=== PATIENT | female | born 1995 | race Caucasian/White ===

== ENCOUNTER 2018-11-20 10:06 | Emergency (ER) | payer MEDICAID, OTHER ==
[~2018-11-20] VITALS: Ht 149.9 cm; Wt 72.6 kg
[~2018-11-20 10:06] MED LIST: GUAI118L94 PO; IBUP-1542 PO; IPRA14.76; LORA-186 PO
[2018-11-20 10:13] VITALS: Ht 149.9 cm; Wt 72.6 kg
[2018-11-20] MEDS ORDERED: ONDANSETRON 4 MG INJ IV STA (10:48)
[2018-11-20] MEDS ORDERED: SOD CHLORIDE 0.9% 500 ML IV STA (10:48)
[2018-11-20] MEDS ORDERED: FAMOTIDINE 20 MG INJ IV STA (10:48)
[2018-11-20] MEDS ORDERED: LIDOCAINE/MYLANTA 40 ML BTL PO STA (10:48)
--- NOTE | 2018-11-20 11:23 | ERD ---
ER Documentation Chief Complaint Chief Complaint ABDOMINAL PAIN TODAY HPI This is a 23-year-old female with a nonsignificant past medical history presents ED with complaints of epigastric abdominal pain that started after lifting a h eavy patient earlier today. Patient states the pain comes and goes and describes it as sharp. Patient states she does not have the pain currently. Patient states that this pain is similar to when she had gallstones but she has had her gallbladder removed. Admits to nausea and mild headache. Patient states that after lifting a heavy patient she started experiencing some mild bilateral shoulder discomfort and chest wall pain as well. Of utmost concern the patient is the abdominal pain. Denies fever, chills, vomiting, hemoptysis, diarrhea, constipation, melena, hematochezia, shortness of breath, trouble breathing, and all other symptoms. No recent travel or sick contact ROS All systems reviewed and are negative except as per history of present illness. Medications Home Meds Active Scripts Ondansetron (Ondansetron Odt) 4 Mg Tab.rapdis, 4 MG PO Q6H PRN for NAUSEA AND/OR VOMITING, #10 TAB Prov:TIFFANIE MCCAIN PA-C 11/20/18 Cephalexin* (Keflex*) 500 Mg Capsule, 500 MG PO BID for 7 Days, CAP Prov:TIFFANIE MCCAIN PA-C 11/20/18 Famotidine* (Pepcid*) 20 Mg Tablet, 20 MG PO BID for 4 Days, TAB Prov:TIFFANIE MCCAIN PA-C 11/20/18 Ibuprofen* (Motrin*) 600 Mg Tab, 600 MG PO Q6H PRN for PAIN AND OR ELEVATED TEMP, #30 TAB Prov:PENG CROWELL NP 11/14/15 Guaifenesin-Codeine Phosphate* (Guaifenesin* with Codeine Liq) 120 Ml Liquid, 5 ML PO Q4H for COUGH, #60 ML Prov:PENG CROWELL NP 11/14/15 Loratadine* (Claritin*) 10 Mg Tablet, 10 MG PO DAILY, #30 TAB Prov:PENG CROWELL NP 11/14/15 Reported Medications Albuterol/Ipratropium (Combivent) 14.7 Gm Inha 07/22/12 Allergies Allergies: Coded Allergies: No Known Allergy (Unverified , 1/3/19) PMhx/Soc History of Surgery: Yes (C/SECTION X1) Anesthesia Reaction: No Hx Neurological Disorder: No Hx Respiratory Disorders: Yes (ASTHMA) Hx Cardiac Disorders: Yes (HEART MURMUR ) Hx Psychiatric Problems: No Hx Miscellaneous Medical Probl: No Hx Alcohol Use: No Hx Substance Use: No Hx Tobacco Use: No Smoking Status: Never smoker FmHx Family History: No diabetes Physical Exam Vitals Vital Signs Date Temp Pulse Resp B/P (MAP) Pulse Ox O2 O2 Flow FiO2 Time Delivery Rate 11/20/18 97.4 76 18 123/76 100 10:13 (92) Physical Exam Physical Exam Vitals signs: Reviewed by me. General: Well developed, well nourished, in no acute distress. Patient is awake and alert. Head: Normocephalic, atraumatic. Eyes: Normal conjunctiva, Pupils PERRLA, EOM intact grossly ENT: Pharynx is clear, Moist mucous membranes, external ears, nose and mouth normal Neck: Supple, no masses, lymphadenopathy or JVD Respiratory: Clear to auscultation bilaterally with no wheezing, rhonchi, rales, no distress Chest: No increased AP diameter, no flail chest, nontender to palpation Cardiovascular: RRR, no murmurs, rubs, or gallops Abdominal: Soft, nondistended, no peritoneal signs, no rigidity, no surgical abdomen, bowel sounds present all 4 quadrants, nontender light deep palpation all 4 quadrants, Nolasco sign negative, McBurney's point nontender, no rebound tenderness : Deferred MSK: No edema, no unilateral swelling, 5/5 strength Back: No midline tenderness. No flank tenderness Neurologic: Alert and oriented, moving all extremities, normal speech, no focal weakness, no cerebellar signs. Normal mentation Skin: warm and dry, No rash Psych: Normal mood Result Diagram: 11/20/18 1108 11/20/18 1108 Results 24 hrs Laboratory Tests Test 11/20/18 11:08 11/20/18 11:17 White Blood Count 6.9 10^3/ul Red Blood Count 4.48 10^6/ul Hemoglobin 13.1 g/dl Hematocrit 40.3 % Mean Corpuscular Volume 90.0 fl Mean Corpuscular Hemoglobin 29.2 pg Mean Corpuscular Hemoglobin Concent 32.5 g/dl Red Cell Distribution Width 12.8 % Platelet Count 248 10^3/UL Mean Platelet Volume 11.2 fl Immature Granulocytes % 0.300 % Neutrophils % 60.9 % Lymphocytes % 32.1 % Monocytes % 5.7 % Eosinophils % 0.7 % Basophils % 0.3 % Nucleated Red Blood Cells % 0.0 /100WBC Immature Granulocytes # 0.020 10^3/ul Neutrophils # 4.2 10^3/ul Lymphocytes # 2.2 10^3/ul Monocytes # 0.4 10^3/ul Eosinophils # 0.1 10^3/ul Basophils # 0.0 10^3/ul Nucleated Red Blood Cells # 0.0 10^3/ul Urine Color YELLOW Urine Clarity SLIGHTLY CLOUDY Urine pH 5.0 Urine Specific [place] 1.019 Urine Ketones NEGATIVE mg/dL Urine Nitrite NEGATIVE mg/dL Urine Bilirubin NEGATIVE mg/dL Urine Urobilinogen NEGATIVE mg/dL Urine Leukocyte Esterase 2+ [place]/ul Urine Microscopic RBC 3 /HPF Urine Microscopic WBC 7 /HPF Urine Squamous Epithelial Cells FEW /HPF Urine Hemoglobin 3+ mg/dL Urine Glucose NEGATIVE mg/dL Urine Total Protein NEGATIVE mg/dl Sodium Level 139 mmol/L Potassium Level 4.1 mmol/L Chloride Level 103 mmol/L Carbon Dioxide Level 27 mmol/L Anion Gap 9 Blood Urea Nitrogen 15 mg/dl Creatinine 0.65 mg/dl Est Glomerular Filtrat Rate mL/min > 60 mL/min Glucose Level 97 mg/dl Calcium Level 9.5 mg/dl Total Bilirubin 0.1 mg/dl Direct Bilirubin 0.00 mg/dl Indirect Bilirubin 0.1 mg/dl Aspartate Amino Transf (AST/SGOT) 28 IU/L Alanine Aminotransferase (ALT/SGPT) 24 IU/L Alkaline Phosphatase 106 IU/L Troponin I < 0.012 ng/ml Total Protein 8.7 g/dl Albumin 4.7 g/dl Globulin 4.00 g/dl Albumin/Globulin Ratio 1.17 Lipase 35 U/L POC Beta HCG, Qualitative NEGATIVE Current Medications Medications Dose Sig/Lilo Start Time Status Last (Trade) Ordered Route PRN Stop Time Admin Dose Reason Admin Sodium 500 ml @ Q1H STAT 11/20/18 DC 11/20/18 Chloride 500 mls/hr IV 10:48 11/20/18 11:06 11:47 Ondansetron 4 mg ONCE STAT 11/20/18 DC 11/20/18 HCl (Zofran IV 10:48 11/20/18 11:06 Inj) 10:50 Famotidine 20 mg ONCE STAT 11/20/18 DC 11/20/18 (Pepcid Iv) IV 10:48 11/20/18 11:06 10:50 40 ml ONCE STAT 11/20/18 DC 11/20/18 Miscellaneous PO 10:48 11/20/18 11:05 Medication 10:50 (Gi Cocktail (2)) Procedures/MDM EKG read by AVERY: Rate/Rhythm: Regular rate and rhythm at a rate of 76 Intervals: Normal Impression: No evidence of ischemia or arrhythmia No ST elevation, no peak T waves, no flattened T waves, no widened QRS, no NC interval prolongation, no QT interval prolongation LAB INTERPRETATION: CBC shows no evidence of hemorrhage or infection Chemistry shows no evidence of significant electrolyte abnormalities or renal insufficiency Liver function test shows no evidence of acute biliary or hepatic dysfunction Lipase shows no evidence of acute pancreatitis Cardiac biomarkers show no evidence of acute myocardial injury or coronary ischemia Urinalysis is remarkable for leukocyte esterase 2+ and 7 WBCs ER COURSE: The patient was given normal saline, Zofran, Pepcid and GI cocktail The medication was well tolerated and the patient reports improvement in symptoms. The patient was stable throughout ED course. I kept the patient and/or family informed of laboratory and diagnostic imaging results throughout the emergency room course. The patient was promptly evaluated and a treatment plan was devised based on H&P and other data. This plan was discussed with the patient who agreed and had no further questions or concerns prior to discharge. MEDICAL DECISION MAKING: Non- woman presenting with abdominal pain. test is negative. Considered causes of female-specific abdominal pain including pelvic inflammatory disease, tubo-ovarian abscess, [id number], and ovarian torsion. Also considered causes of abdominal pain that are not gender-specific (e.g., appendicitis, volvulus, small bowel obstruction, mesenteric adenitis, acute cholecystitis/choledocholithiasis and other biliary pathology, etc.). Patient well-appearing with normal vital signs. No peritoneal signs and abdomen benign on multiple repeat examinations. Pt well hydrated. Laboratory testing here reviewed and normal. Patient does have 2+ leukocyte esterase in urine. Will treat patient for UTI. Unsure of source of patient's epigastric abdominal pain but likely could be due to gastritis. No evidence of gastrointestinal em ergency, cardiac emergency including but not limited to GA, STEMI, and STEMI, aortic dissection, appendicitis, cholecystitis, small bowel obstruction, perforated viscus. Patient given strict return precautions for worsening pain, inability to eat/drink, fevers (temperature over 100.4F), or other concerns. Prior to discharge all questions answered. She agrees with treatment plan and understands strict return precautions. Follow-up for repeat abdominal exam within 12 hours. DISPOSITION PLAN: We discussed follow up with the patient's primary care doctor within 24 to 48 hours. Patient counseled regarding my diagnostic impression and care plan. Prior to discharge all questions answered. Pt agrees with treatment plan and understands strict return precautions. Precautionary instructions provided including instructions to return to the ER if not improving or for any worsening or changing symptoms or concerns. SPECIALIST FOLLOW UP RECOMMENDED: None Patient has been advised to follow up with primary care in 1-2 days. Disclaimer: Inadvertent spelling and grammatical errors are likely due to EHR/dictation software use and do not reflect on the overall quality of patient care. Also, please note that the electronic time recorded on this note does not necessarily reflect the actual time of the patient encounter. Departure Diagnosis: Primary Impression: Abdominal pain Abdominal location: epigastric Qualified Codes: R10.13 - Epigastric pain Additional Impressions: UTI (urinary tract infection) Urinary tract infection type: acute cystitis Hematuria presence: without hematuria Qualified Codes: N30.00 - Acute cystitis without hematuria Shoulder pain, bilateral Chronicity: acute Qualified Codes: M25.511 - Pain in right shoulder; M25.512 - Pain in left shoulder Condition: Stable Patient Instructions: Abdominal Pain, Shoulder Pain (Uncertain Cause), Understanding Urinary Tract Infections (UTIs) Referrals: [facility] Additional Instructions: Patient advised to return to the ED immediately for new or worsening symptoms. Patient advised to follow up with primary care provider in the next 24-48 hours. Patient verbalized understanding and agrees with treatment plan and course of action. If patient has no primary care they may follow up with one of the community clinics listed on the following page or one of the options listed below [facility] + [facility] [address] [place] [address] [id number] [facility] [id number] [place] [id number] or [facility] [address] [place] [address] TIFFANIE MCCAIN PA-C Nov 20, 2018 11:23
[2018-11-20] MEDS ORDERED: FAMO-96 PO (12:08)
[2018-11-20] MEDS ORDERED: CEPH-443 PO (12:08)
[2018-11-20] MEDS ORDERED: ONDA4TAB14 PO (12:08)
[2018-11-20 12:45] VITALS: BP 116/67; PULSE 73; RESP 19
== END 2018-11-20 12:47 | disposition home or self-care (01) ==
LOC: FTE 10:06
DX: N30.00 Acute cystitis without hematuria (principal); M25.511 Pain in right shoulder; M25.512 Pain in left shoulder; J45.909 Unspecified asthma, uncomplicated
CPT/HCPCS: 36415; 80053; 81001; 81025; 83690; 84484; 85025; 93005; 96374; 96375; J2405; J7040; Z7502; Z7610

== ENCOUNTER 2019-01-06 02:31 | Emergency (ER) | payer SELFPAY ==
[~2019-01-06] VITALS: Ht 154.9 cm; Wt 100.0 kg
[~2019-01-06 02:31] MED LIST changes: +CEPH-443 PO; +FAMO-96 PO; +ONDA4TAB14 PO
[2019-01-06 02:40] VITALS: BP 124/57; PULSE 77; RESP 18; Ht 154.9 cm; Wt 100.0 kg
== END 2019-01-06 03:48 | disposition left against medical advice (07) ==
LOC: FTE 02:31
DX: Z53.21 Procedure and treatment not carried out due to patient leaving prior to being seen by health care provider (principal)

== ENCOUNTER 2019-01-14 17:44 | Emergency (ER) | payer SELFPAY | END 2019-01-14 18:31 | disposition left against medical advice (07) | LOC: E/R 17:44 | DX: Z53.21 Procedure and treatment not carried out due to patient leaving prior to being seen by health care provider (principal) ==

== ENCOUNTER 2019-03-05 21:43 | Emergency (ER) | payer MEDICAID ==
[~2019-03-05] VITALS: Ht 149.9 cm; Wt 75.7 kg
[2019-03-05 21:45] VITALS: BP 145/75; PULSE 94; RESP 20; Ht 149.9 cm; Wt 75.7 kg
--- NOTE | 2019-03-06 00:07 | ERD ---
ER Documentation Chief Complaint Chief Complaint AP x45 minutes w/ nausea. 15 weeks HPI 23-year-old female with no reported past medical or surgical history presents with 1 day complaint of nausea and midepigastric abdominal pain. States pain started in the mid epigastric area but radiates to both flanks. Describes a sharp burning type pain made worse by laying flat. Had intermittent nausea but no episodes of vomiting. No episodes of diarrhea. No reported fevers. She denies vaginal bleeding or discharge, urinary symptoms such as burning or itching but does have frequency likely related to her .. Been following closely with [facility] recently seen last week. Due to heart tones checked at the time which patient reports as normal. Last ultrasound was in mid January and reported as normal. She otherwise is without complaint. First delivered via emergency cyst secondary to placental abruption, otherwise uncomplicated course. ROS All systems reviewed and are negative except as per history of present illness. Medications Home Meds Active Scripts Ondansetron (Ondansetron Odt) 4 Mg Tab.rapdis, 4 MG PO Q6H PRN for NAUSEA AND/OR VOMITING, #10 TAB Prov:TIFFANIE MCCAIN PA-C 11/20/18 Cephalexin* (Keflex*) 500 Mg Capsule, 500 MG PO BID for 7 Days, CAP Prov:TIFFANIE MCCAIN PA-C 11/20/18 Famotidine* (Pepcid*) 20 Mg Tablet, 20 MG PO BID for 4 Days, TAB Prov:TIFFANIE MCCAIN PA-C 11/20/18 Ibuprofen* (Motrin*) 600 Mg Tab, 600 MG PO Q6H PRN for PAIN AND OR ELEVATED TEMP, #30 TAB Prov:PENG CROWELL NP 11/14/15 Guaifenesin-Codeine Phosphate* (Guaifenesin* with Codeine Liq) 120 Ml Liquid, 5 ML PO Q4H for COUGH, #60 ML Prov:PENG CROWELL NP 11/14/15 Loratadine* (Claritin*) 10 Mg Tablet, 10 MG PO DAILY, #30 TAB Prov:PENG CROWELL NP 11/14/15 Reported Medications Albuterol/Ipratropium (Combivent) 14.7 Gm Inha 07/22/12 Allergies Allergies: Coded Allergies: No Known Allergy (Unverified , 11/20/18) PMhx/Soc History of Surgery: No Anesthesia Reaction: No Hx Neurological Disorder: No Hx Respiratory Disorders: No Hx Cardiac Disorders: No Hx Psychiatric Problems: No Hx Miscellaneous Medical Probl: No Hx Alcohol Use: No Hx Substance Use: No Hx Tobacco Use: No FmHx Family History: No diabetes, No coronary disease, No other Physical Exam Vitals Vital Signs Date Temp Pulse Resp B/P (MAP) Pulse Ox O2 O2 Flow FiO2 Time Delivery Rate 03/05/19 98.7 94 20 145/75 99 21:45 (98) Physical Exam I have reviewed the triage vital signs. Const: Well nourished, well developed, appears stated age Eyes: PERRL, no conjunctival injection HENT: NCAT, Neck supple without meningismus CV: RRR, Warm, well-perfused extremities RESP: CTAB, Unlabored respiratory effort GI: soft, non-tender, non-distended, no masses MSK: No gross deformities appreciated Skin: Warm, dry. No rashes Neuro: grossly non focal Psych: Appropriate mood and affect. Results 24 hrs Laboratory Tests Test 03/06/19 00:33 Urine Color STRAW Urine Clarity CLEAR Urine pH 7.0 Urine Specific [place] 1.010 Urine Ketones NEGATIVE mg/dL Urine Nitrite NEGATIVE mg/dL Urine Bilirubin NEGATIVE mg/dL Urine Urobilinogen NEGATIVE mg/dL Urine Leukocyte Esterase TRACE [place]/ul Urine Microscopic RBC 1 /HPF Urine Microscopic WBC 1 /HPF Urine Squamous Epithelial Cells FEW /HPF Urine Mucus FEW /HPF Urine Hemoglobin NEGATIVE mg/dL Urine Glucose NEGATIVE mg/dL Urine Total Protein NEGATIVE mg/dl Procedures/MDM 23-year-old 15-week female presents with abdominal pain of unclear etiology. Their evaluation has not identified a emergent etiology for the abdominal pain. Specifically, given the very benign exam and normal US findings I have a very low suspicion for miscarriage, appendicitis, ischemic bowel, bowel perforation, pyelonephritis, acute cholecystitis or any other life threatening disease she further emergency room care. Patient without complaint of vaginal bleeding and is otherwise nontoxic appearing with stable hemodynamics. ED course: UA Ultrasound without concerning findings I have discussed with the patient the level of uncertainty with undifferentiated abdominal pain and clearly explained the need to follow-up as noted on the discharge instructions, or return to the Emergency Department immediately if the pain worsens, develops fever, persistent and uncontrollable vomiting, or for any new symptoms or concerns. I discussed with the patient that this presentation today for abdominal pain could represent a significant risk for an acute abdominal process. Although the tests in the ED were essentially normal, there is still a possibility of a process such as appendicitis, diverticulitis, cholecystitis, ulcer, early bowel obstruction, mesenteric ischemia, kidney stone, or even kidney infection which could subsequently cause disability or . The patient understands that they must return within 24 hours for a recheck or see their physician within 24 hours for re-exam due to the possibility of significant surgical or medical process. DISPOSITION PLAN: We discussed follow up with the patient's primary care doctor within 24 to 48 hours. Patient counseled regarding my diagnostic impression and care plan. Prior to discharge all questions answered. Pt agrees with treatment plan and understan ds strict return precautions. Precautionary instructions provided including instructions to return to the ER if not improving or for any worsening or changing symptoms or concerns. Departure Condition: Stable ESCOBAR OMALLEY PA-C Mar 06, 2019 00:07
== END 2019-03-06 02:10 | disposition home or self-care (01) ==
LOC: FTE 21:43
DX: O26.892 Other specified pregnancy related conditions, second trimester (principal); R10.13 Epigastric pain; Z3A.15 15 weeks gestation of pregnancy
CPT/HCPCS: 76805; 81001; 87086; Z7502

== ENCOUNTER 2019-06-16 19:09 | Inpatient (IN) | payer MEDICAID ==
[~2019-06-16] VITALS: Ht 149.9 cm; Wt 77.0 kg
[~2019-06-16 19:09] MED LIST changes: +PREN-93 PO; +URSO300C3 PO
[2019-06-16 19:27] VITALS: BP 125/65; PULSE 100; RESP 18; Ht 149.9 cm; Wt 77.0 kg
[2019-06-17] MEDS ORDERED: LACTATED RINGER'S 1,000 ML IV SCH (01:05)
[2019-06-17] MEDS ORDERED: ACETAMINOPHEN 325 MG TAB PO PRN (01:30)
[2019-06-17] MEDS ORDERED: ONDANSETRON 4 MG INJ IV PRN (01:30)
[2019-06-17] MEDS ORDERED: LACTATED RINGER'S 1,000 ML IV ONE (01:30)
[2019-06-17] MEDS ORDERED: PRENATAL VITAMIN PO SCH (09:00)
[2019-06-17] MEDS ORDERED: DOCUSATE SODIUM 100 MG CAP PO SCH (09:00)
--- NOTE | 2019-06-17 09:38 | HP ---
Date/Time of Note Date/Time of Note DATE: 06/17/19 TIME: 09:34 OB - History Hx of Present Chief Complaint: epigastric pain Estimated Due Date: Aug 24, 2019 : 2 Para: 1 Spontaneous : 0 Therapeutic : 0 Care: Other ([id number] records not available) Obstetrical Complications: None Medical Complications: None Past Family/Social History * Past Medical, Surgical, Family and Obstetric Histories reviewed from chart. OB Admission Exam Vital Signs Vital Signs Vital Signs Date Temp Pulse Resp B/P (MAP) Pulse Ox O2 O2 Flow FiO2 Time Delivery Rate 06/16/19 99.0 100 18 125/65 Room Air 19:27 (85) Physical Exam HEENT: WNL Heart: Rhythm Normal Lungs: Clear, Equal Abdomen: WNL Extremities: Normal Reflexes: Normal Cervical Dilatation: None Heart Rate: 120's Accelerations: Accelerations Present Decelerations: No Decelerations Varibility: Moderate Last 72 hours Lab Results CBC & BMP 06/16/19 21:45 06/17/19 08:31 Liver Function Test 06/16/19 21:45 06/17/19 08:31 Alanine Aminotransferase (ALT/SGPT) 158 H 137 H Albumin 3.3 3.0 L Alkaline Phosphatase 233 H 206 H Aspartate Amino Transf (AST/SGOT) 76 H 73 H Direct Bilirubin 0.00 0.00 Total Protein 6.8 6.5 OB Assessment/Plan Reason for admission: other Other Assessment: epigastric pain R/O labor Plan: Other Other plan: Admit IV hydration Monitor Repeat labs BO HEATH MD Jun 17, 2019 09:38
--- NOTE | 2019-06-17 09:40 | QN ---
Documentation Comment Patient has generalized itching. Total bile acids sent and pending. Abdominal pain resolved. No cervical change. Labs are stable. BO HEATH MD Jun 17, 2019 09:40
--- NOTE | 2019-06-17 09:41 | DS ---
Date/Time of Note Date/Time of Note DATE: 06/17/19 TIME: 09:40 Obstetrical Discharge Record Final Diagnosis Final Diagnosis: not delivered Other Final Diagnosis abdominal pain Condition on Discharge Physical Assessment Voiding: Yes Bowel Movement: Yes Calf Tenderness: No Patient Condition: Stable BO HEATH MD Jun 17, 2019 09:41
== END 2019-06-17 09:34 | disposition home or self-care (01) | DRG 833 ==
LOC: OBT 19:09 → L-D 19:11 → OBT 06-17 01:00 → L-D 06-17 01:48
PROVIDERS: ADMIT Obstetrics & Gynecology; ATTEND Obstetrics & Gynecology
DX: O47.9 False labor, unspecified (principal)
CPT/HCPCS: 76705; 76815; 76817; 76818; 80053; 80307; 81003; 82150; 83690; 83789; 84560; 85025; 86592; 86900; 86901; G0463; J7120

== ENCOUNTER 2019-06-19 12:42 | Outpatient (CLI) | payer MEDICAID ==
[~2019-06-19] VITALS: Ht 149.9 cm; Wt 76.8 kg
[~2019-06-19 12:42] MED LIST changes: -CEPH-443 PO; -FAMO-96 PO; -GUAI118L94 PO; -IBUP-1542 PO; -IPRA14.76; -LORA-186 PO; -ONDA4TAB14 PO
[2019-06-19 14:09] VITALS: BP 121/69; PULSE 93; RESP 18
--- NOTE | 2019-06-19 15:46 | TRIAGE ---
OB Triage Datetime Report Generated by CPN: 06/19/2019 15:46 Datetime: 06/19/2019 14:53 Stage of : OB Triage Datetime: 06/19/2019 14:36 Stage of : OB Triage Datetime: 06/19/2019 14:11 Time of Arrival: 06/19/2019 12:35 EGA: 30.4 Arrived By: Ambulatory Arrived From: Home Chief Complaint: RASH ON LEGS x1 WEEK; GENERAL ITCHING Movement: Present Contractions: Denies/Absent Rupture of Membranes: Denies Vaginal Bleeding: None Vaginal Discharge: Denies Recent Sexual Intercouse: Denies Abdominal Trauma: Not Applicable Patient Complaints: Other Time Provider Notified: 06/19/2019 14:10 Provider Notified: DELSHAD Initial Plan: MONITOR, BPP, KATINA DOPPLER BILATERALLY Datetime: 06/19/2019 13:59 Stage of : OB Triage Assessment Type: Triage Maternal Assessment Level of Consciousness: Keenly Alert, Responsive Headache: Denies Blurred Vision: No Respiratory Effort: Unlabored; Regular Rhythm; Equal Expansion Breath Sounds, Left: Clear and Equal Breath Sounds, Right: Clear and Equal Nausea/Vomiting: Denies RUQ Epigastric Pain: Denies Lower Extremities Edema: Bilateral Lower Extremities Degree: 1+ Upper Extremities Edema: None Degree: None Facial Edema: None Temperature Route: Oral Fall Risk Assessment History of Falling: (0) No Secondary Diagnosis: (0) No Ambulatory Aid: (0) Bedrest/Nurse Assist IV Therapy: (0) No Gait: (0) Normal/Bedrest/Immobile Mental Status: (0) Oriented to Own Ability Fall Score: 0 Fall Risk Score Definition: No Risk: No action required Monitor Mode: External Monitor Mode: External US Pain Assessment Pain Scale: 0 Pain Presence: None/Denies Pain Type: N/A Datetime: 06/17/2019 09:00 Stage of : OB Triage Maternal Assessment Level of Consciousness: Keenly Alert, Responsive Labor Evaluation Frequency: 4UC/HR Monitor Mode: External Duration (sec)2399: 70-110 Quality: Mild Resting Tone [place]: Relaxed Heart Rate FHR Baseline Rate: 135 Monitor Mode: External US Variability: Moderate 6-25 bpm Accelerations: 15X15 Decelerations: None Category: Category I Pain Assessment Pain Scale: 0 Pain Goal: 3 Membrane Status: Intact Vaginal Bleeding: None Datetime: 06/17/2019 08:00 Stage of : OB Triage Maternal Assessment Level of Consciousness: Keenly Alert, Responsive Labor Evaluation Frequency: 3UC/HR Monitor Mode: External Duration (sec)2399: 70-80 Quality: Mild Resting Tone [place]: Relaxed Heart Rate FHR Baseline Rate: 135 Monitor Mode: External US Variability: Moderate 6-25 bpm Accelerations: 15X15 Decelerations: None Category: Category I Pain Assessment Pain Scale: 0 Pain Goal: 3 Membrane Status: Intact Vaginal Bleeding: None Datetime: 06/17/2019 07:55 Stage of : Antepartum Temperature Route: Oral Datetime: 06/17/2019 07:54 Assessment Type: Ongoing Assessment Maternal Assessment Level of Consciousness: Keenly Alert, Responsive DTR's/Clonus: DTRs 2+; No Clonus Headache: Denies Blurred Vision: No Respiratory Effort: Unlabored; Regular Rhythm; Equal Expansion Breath Sounds, Left: Clear and Equal Breath Sounds, Right: Clear and Equal Nausea/Vomiting: Denies RUQ Epigastric Pain: Denies Facial Edema: None Fall Risk Assessment History of Falling: (0) No Secondary Diagnosis: (0) No Ambulatory Aid: (0) Bedrest/Nurse Assist IV Therapy: (20) Yes Gait: (0) Normal/Bedrest/Immobile Mental Status: (0) Oriented to Own Ability Fall Score: 20 Fall Risk Score Definition: No Risk: No action required Datetime: 06/17/2019 07:00 Labor Evaluation Frequency: OCCASIONAL Monitor Mode: External Duration (sec)2399: 50-120 Pattern: Normal: <= 5 Contractions in 10 Minutes Heart Rate FHR Baseline Rate: 140 Monitor Mode: External US Variability: Moderate 6-25 bpm Accelerations: 15X15 Decelerations: Variable Category: Category II Datetime: 06/17/2019 06:00 Labor Evaluation Frequency: 9-12 Monitor Mode: External Duration (sec)2399: 60-120 Pattern: Normal: <= 5 Contractions in 10 Minutes Heart Rate FHR Baseline Rate: 135 Monitor Mode: External US Variability: Moderate 6-25 bpm Accelerations: 15X15 Decelerations: None Category: Category I Datetime: 06/17/2019 05:30 Labor Evaluation Frequency: x6 Monitor Mode: External Duration (sec)2399: 50-80 Quality: Mild Pattern: Normal: <= 5 Contractions in 10 Minutes Resting Tone [place]: Relaxed Heart Rate FHR Baseline Rate: 145 Monitor Mode: External US Variability: Moderate 6-25 bpm Accelerations: 15X15 Decelerations: None Category: Category I Datetime: 06/17/2019 04:55 Pain Assessment Pain Scale: 0 Pain Presence: None/Denies Pain Type: N/A Datetime: 06/17/2019 04:30 Labor Evaluation Frequency: Irregular Monitor Mode: External Resting Tone [place]: Relaxed Heart Rate FHR Baseline Rate: 145 Monitor Mode: External US Variability: Moderate 6-25 bpm Accelerations: 15X15 Decelerations: None Category: Category I Datetime: 06/17/2019 04:05 Pain Assessment Pain Scale: 0 Pain Presence: None/Denies Pain Type: N/A Datetime: 06/17/2019 03:30 Labor Evaluation Frequency: Irregular Monitor Mode: External Resting Tone [place]: Relaxed Heart Rate FHR Baseline Rate: 145 Monitor Mode: External US Variability: Moderate 6-25 bpm Accelerations: 15X15 Decelerations: None Category: Category I Datetime: 06/17/2019 03:19 Pain Assessment Pain Scale: 0 Pain Presence: None/Denies Pain Type: N/A Datetime: 06/17/2019 02:30 Labor Evaluation Frequency: x3 Monitor Mode: External Duration (sec)2399: 50-80 Quality: Mild Pattern: Normal: <= 5 Contractions in 10 Minutes Resting Tone [place]: Relaxed Heart Rate FHR Baseline Rate: 145 Monitor Mode: External US Variability: Moderate 6-25 bpm Accelerations: None Decelerations: None Category: Category I Datetime: 06/17/2019 02:26 Stage of : Antepartum Assessment Type: Admission Assessment Vaginal Bleeding: None Maternal Assessment Level of Consciousness: Keenly Alert, Responsive DTR's/Clonus: DTRs 2+; No Clonus Headache: Denies Blurred Vision: No Respiratory Effort: Unlabored; Regular Rhythm; Equal Expansion Breath Sounds, Left: Clear and Equal Breath Sounds, Right: Clear and Equal Nausea/Vomiting: Denies RUQ Epigastric Pain: Denies Facial Edema: None Fall Risk Assessment History of Falling: (0) No Secondary Diagnosis: (0) No Ambulatory Aid: (0) Bedrest/Nurse Assist IV Therapy: (20) Yes Gait: (0) Normal/Bedrest/Immobile Mental Status: (0) Oriented to Own Ability Fall Score: 20 Fall Risk Score Definition: No Risk: No action required Pain Assessment Pain Scale: 7 Pain Presence: Constant Pain Type: Pressure Pain Location: Abdomen; Perineum Datetime: 06/17/2019 02:25 Time of Arrival: 06/17/2019 01:00 EGA: 30.2 Arrived By: Wheelchair Arrived From: TRIAGE Datetime: 06/17/2019 01:55 Pain Assessment Pain Scale: 7 Pain Presence: Constant Pain Type: Sharp Pain Location: Abdomen (Annotations: Upper right sided) Datetime: 06/17/2019 01:30 Labor Evaluation Frequency: x9 Monitor Mode: External Duration (sec)2399: 50-90 Quality: Mild Pattern: Normal: <= 5 Contractions in 10 Minutes Resting Tone [place]: Relaxed Heart Rate FHR Baseline Rate: 150 Monitor Mode: External US Variability: Moderate 6-25 bpm Accelerations: 15X15 Decelerations: None Category: Category I Datetime: 06/17/2019 01:00 Stage of : Antepartum Datetime: 06/17/2019 00:59 Vaginal Exam Dilatation (cms): 0.0 Effacement (%): 70 Station: -1 Exam By: Dr. Saavedra Vaginal Bleeding: None Cervix, Consistency: Soft Cervix, Position: Posterior Datetime: 06/17/2019 00:30 Labor Evaluation Frequency: x5 Monitor Mode: External Duration (sec)2399: 40-70 Quality: Mild Pattern: Normal: <= 5 Contractions in 10 Minutes Resting Tone [place]: Relaxed Heart Rate FHR Baseline Rate: 150 Monitor Mode: External US Variability: Moderate 6-25 bpm Accelerations: 15X15 Decelerations: None Category: Category I Datetime: 06/17/2019 00:22 Pain Assessment Pain Scale: 7 Pain Presence: Constant Pain Type: Sharp Pain Location: Abdomen (Annotations: Upper right sided) Datetime: 06/16/2019 23:30 Labor Evaluation Frequency: NONE Monitor Mode: External Resting Tone [place]: Relaxed Heart Rate FHR Baseline Rate: 150 Monitor Mode: External US Variability: Moderate 6-25 bpm Accelerations: 15X15 Decelerations: None Category: Category I Datetime: 06/16/2019 22:30 Labor Evaluation Frequency: x3 Monitor Mode: External Duration (sec)2399: 40-50 Quality: Mild Pattern: Normal: <= 5 Contractions in 10 Minutes Resting Tone [place]: Relaxed Heart Rate FHR Baseline Rate: 150 Monitor Mode: External US Variability: Moderate 6-25 bpm Accelerations: 15X15 Decelerations: None Category: Category I Datetime: 06/16/2019 21:30 Stage of : OB Triage Maternal Assessment Level of Consciousness: Keenly Alert, Responsive Labor Evaluation Frequency: 0 Monitor Mode: External Resting Tone [place]: Relaxed Heart Rate FHR Baseline Rate: 150 Monitor Mode: External US Variability: Moderate 6-25 bpm Accelerations: 15X15 Decelerations: None Pain Assessment Pain Scale: 7 Pain Presence: Constant Pain Type: Ache Pain Location: Abdomen Pain Goal: 3 Membrane Status: Intact Vaginal Bleeding: None Datetime: 06/16/2019 20:30 Stage of : OB Triage Maternal Assessment Level of Consciousness: Keenly Alert, Responsive Labor Evaluation Frequency: 0 Monitor Mode: External Resting Tone [place]: Relaxed Heart Rate FHR Baseline Rate: 150 Monitor Mode: External US Variability: Moderate 6-25 bpm Accelerations: 15X15 Decelerations: None Category: Category I Pain Assessment Pain Scale: 7 Pain Presence: Constant Pain Type: Ache Pain Location: Abdomen Pain Goal: 3 Membrane Status: Intact Vaginal Bleeding: None Datetime: 06/16/2019 19:24 Assessment Type: Triage Maternal Assessment Level of Consciousness: Keenly Alert, Responsive DTR's/Clonus: DTRs 2+; No Clonus Headache: Denies Blurred Vision: No Respiratory Effort: Unlabored; Regular Rhythm; Equal Expansion Breath Sounds, Left: Clear and Equal Breath Sounds, Right: Clear and Equal Nausea/Vomiting: Denies RUQ Epigastric Pain: Denies Lower Extremities Edema: None Degree: None Upper Extremities Edema: None Degree: None Facial Edema: None Fall Risk Assessment History of Falling: (0) No Secondary Diagnosis: (0) No Ambulatory Aid: (0) Bedrest/Nurse Assist IV Therapy: (0) No Gait: (0) Normal/Bedrest/Immobile Mental Status: (0) Oriented to Own Ability Fall Score: 0 Fall Risk Score Definition: No Risk: No action required Datetime: 06/16/2019 19:23 Time of Arrival: 06/16/2019 19:00 EGA: 30.1 Arrived By: Ambulatory; Wheelchair Arrived From: Home Chief Complaint: PT. HERE C/O ABD. PAIN X 2 WEEKS, ANKLES HURTING Movement: Present Contractions: Denies/Absent Rupture of Membranes: Denies Vaginal Bleeding: None Vaginal Discharge: Denies Recent Sexual Intercouse: Denies Abdominal Trauma: Not Applicable Patient Complaints: Other Time Provider Notified: 06/16/2019 19:32 Provider Notified: ETHAN Initial Plan: EFM/BPP/CVL/EFW/UA/U-TOX Datetime: 06/16/2019 19:21 Stage of : OB Triage Monitor Mode: External Monitor Mode: External US
--- NOTE | 2019-06-19 16:58 | PN ---
Triage Information Date/Time 06/19/1901/06/1627 Reason for visit: leg pain generalized itching Weeks of Gestation 30w4d /Para Hx of cholestasis with ist 3days ago serum bile acid drawn last c/s done for placental abruption Diabetes: none Hypertention: none Objective Vital Signs Date Temp Pulse Resp B/P (MAP) Pulse Ox O2 O2 Flow FiO2 Time Delivery Rate 06/19/19 97.6 93 18 121/69 Room Air 14:09 (86) Heart Rate: 140's Heart Rate Comments CAT I Contractions: None Exam reddish purple patches on extensor surface on LE Results/Medications Imaging Results BPP 06/25 JERI 13.7 bilateral venous doppler study neg Disposition: Discharge Assessment/Plan A IUP 30w4d cholestasis? RTH saturday for f/u BPP NST P f/u with her OB on sat YASMEEN MAYBERRY MD Jun 19, 2019 16:37
== END 2019-06-19 15:25 | disposition home or self-care (01) ==
LOC: L-D 12:42 → OBT 12:42
PROVIDERS: ATTEND Obstetrics & Gynecology
DX: O26.893 Other specified pregnancy related conditions, third trimester (principal); Z3A.30 30 weeks gestation of pregnancy; M79.606 Pain in leg, unspecified; L29.9 Pruritus, unspecified
CPT/HCPCS: 76818; 93970; Z7500; G0463

== ENCOUNTER 2019-06-22 15:26 | Inpatient (IN) | payer MEDICAID ==
[~2019-06-22] VITALS: Ht 149.9 cm; Wt 75.7 kg
[2019-06-22 15:36] VITALS: Ht 149.9 cm; Wt 75.7 kg
--- NOTE | 2019-06-22 18:34 | HP ---
Date/Time of Note Date/Time of Note DATE: 06/22/19 TIME: 18:30 OB - History Hx of Present Chief Complaint: Difficulty ambylating secondary to multiple skin lesions on lower extremiti Estimated Due Date: Aug 24, 2019 : 2 Para: 1 Spontaneous : 0 Therapeutic : 0 Care: Good Care Ultrasounds: Normal mid trimester US Obstetrical Complications: Other (intrahepatic cholestasis of ) Medical Complications: None Past Family/Social History * Past Medical, Surgical, Family and Obstetric Histories reviewed from chart. OB Admission Exam Physical Exam Extremities: Other (multiple erythematous lesions on lower extremities) Heart Rate: 120's Accelerations: Accelerations Present Decelerations: No Decelerations Varibility: Moderate OB Assessment/Plan Reason for admission: other Other Assessment: Multiple skin lesions on lower extremities Plan: Other Other plan: Admit ID consult BO HEATH MD Jun 22, 2019 18:34
[2019-06-22] MEDS: URSODIOL 300 MG CAP PO SCH (21:00)
[2019-06-23] MEDS ORDERED: FERROUS SULFATE (EC) 325 MG TAB PO SCH (09:00)
[2019-06-23] MEDS ORDERED: PRENATAL VITAMIN PO SCH (09:00)
[2019-06-23] MEDS: URSODIOL 300 MG CAP PO SCH ×2 (09:48→15:10)
--- NOTE | 2019-06-23 14:03 | PERINOTE ---
Date/Time of Note Date/Time of Note DATE: 06/23/19 TIME: 13:05 Assessment/Recommendations Other Assessments IUP 31W1D Macular papular rash on the lower extremities. I feel that there is a low likelihood of an acute infectious process given the lack of an elevated WBC and the lack of systemic symptoms This could be a dermatosis of , although the differential diagnosis is difficult. Cholestasis of Itching related to this is likely to respond to ursodiol treatment. Recommendations: The treatment for most of the dermatoses of is topical steroid and oral antihistamines. I would delay this treatment until the patient is seen by infectious disease. As some dermatoses of are associated with increased risk, would consider twice weekly NST and weekly JERI until delivery. Would also perform serial US for growth every 4 weeks. I would consider RUQ ultrasound as the elevated LFTs are unusual with a minimally elevated total bile acid. I would consult dermatology on this patient for additional suggestions. OB Subjective Free Text/Dictaton Patient admitted with leg pain and rash. Now found to have large macular- papular plaques, with fine vesicles on some of the lesions. These are painful to the touch. Patient also diagnosed with cholestasis of with bile acids minimally elevated, and elevations of the LFTs. She has been begun on ursodiol. HD# 2 IUP @ 31W1D by LMP confirmed by early US Current Medications Current Medications Prenat Multivit/ [place]/Iron/Folic Ac () 1 tab DAILY PO Last administere d on 06/23/19at 09:49; Admin Dose 1 TAB; Start 06/23/19 at 09:00 Ferrous Sulfate (Ferrous Sulfate (Ec)) 325 mg DAILY PO Last administered on 06/23/19at 09:49; Admin Dose 325 MG; Start 06/23/19 at 09:00 Ursodiol (Actigall) 300 mg TID PO Last administered on 06/23/19at 09:48; Admin Dose 300 MG; Start 06/22/19 at 21:00 Past Medical History Medical History: no pertinent history Surgical History: cholecystectomy ASSET ANALYST History: other ( delivery) Para: 1 (Cholestasis with this ) : 2 LMP (Females 10-50): Family History Significant Family History: diabetes Social History Smoker: non-smoker Alcohol: none Drugs: none OB Admission Exam Physical Exam Abdomen: WNL Extremities: Other (Multiple dark red macular-papular lesions on the lower extremities (extensor surface of the legs, now spreading above the knee and to the flexor surface)) Heart Rate: 130's Accelerations: Accelerations Present Decelerations: No Decelerations Varibility: Moderate Copies To: CC: BO HEATH MD ; DIANA KHAN MD Jun 23, 2019 13:15
[2019-06-23] MEDS ORDERED: DIPHENHYDRAMINE 50 MG CAP PO PRN (15:00)
[2019-06-23] MEDS ORDERED: HYDROCORTISONE 2.5% 20 GM CR TOP SCH (16:00)
--- NOTE | 2019-06-23 17:06 | CONS ---
DATE OF ADMISSION: 06/22/2019 DATE OF CONSULTATION: 06/23/2019 TYPE OF CONSULTATION: Infectious disease. REASON FOR CONSULTATION: Antibiotic management. HISTORY OF PRESENT ILLNESS: Gisela Gonzalez is a very pleasant 23-year-old female, gravid a 1, who is 31 weeks . About 2 weeks ago, she started to develop lesion on both of her legs which have subsequently spread up her leg to the anterior tibia on to her thigh and laterally. She h as no fever or chills. They burn somewhat. She has no history of high blood pressure, diabetes, hea rt disease and she has had 1 . PAST MEDICAL HISTORY: As outlined. FAMILY HISTORY: Noncontributory. SOCIAL HISTORY: She does not smoke, drink or abuse drugs. ALLERGIES: NONE TO PENICILLIN, SULFA OR FOODS. MEDICATIONS: Per chart. REVIEW OF SYSTEMS: Noncontributory. PHYSICAL EXAMINATION: HEENT: Within normal limits. NECK: Supple. LYMPH NODES: None palpable. LUNGS: Clear to P and A. HEART: Without murmur or gallop. ABDOMEN: Soft, distended, 31-week . EXTREMITIES: She has multiple nodules, some very large on the distal shins anteriorly, spreading upw ards laterally with smaller lesions laterally. RECTAL AND GENITAL: Deferred. NEUROLOGIC: No focal neurological abnormalities. 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 Pyoderma gangr inosum probably could do this, but I would think erythema nodosum or dermatoses of , but wendie thema nodosum can be associated with multiple different diseases. At this point in time, she does no t have any. I think the powder worker tnt would be the person to ask with regards to this lesion. I hav e discussed the case with Dr. Heath. Dictated By: CRIS MISTRY MD, JD/HAMLET Conf#: [id number] DID#: [id number] CC: BO HEATH MD;*EndCC*
--- NOTE | 2019-06-23 20:15 | DS ---
Date/Time of Note Date/Time of Note DATE: 06/23/19 TIME: 20:14 Obstetrical Discharge Record Final Diagnosis Final Diagnosis: not delivered Other Final Diagnosis Intrahepatic cholestasis of Dermatoses of Condition on Discharge Physical Assessment Voiding: Yes Bowel Movement: Yes Calf Tenderness: No Patient Condition: Stable BO HEATH MD Jun 23, 2019 20:15
--- NOTE | 2019-06-23 21:56 | TRIAGE ---
OB Triage Datetime Report Generated by CPN: 06/23/2019 21:56 Datetime: 06/23/2019 21:46 Labor Evaluation Frequency: none Monitor Mode: External (Annotations: removed) Heart Rate FHR Baseline Rate: 150 Monitor Mode: External US (Annotations: removed) Variability: Moderate 6-25 bpm Accelerations: 15X15 Decelerations: None Category: Category I Comments: NST completed (Annotations: Reactive strip and appropriate for gestational age. Tanya W . RN reviewed strip and agreed with primary RN of reactive strip. ) Datetime: 06/23/2019 21:31 Comments: Active movement noted on palpation. Datetime: 06/23/2019 21:23 Resting Tone Vader: Relaxed Contraction Comments: Abdomen soft on palpation. No contractions palpated Comments: Active movement noted on palpation Datetime: 06/23/2019 21:16 Comments: Active movment noted on palpation. Datetime: 06/23/2019 21:06 Resting Tone Vader: Relaxed Contraction Comments: Abdomen soft. No contractions palpated. Pain Assessment Pain Scale: 0 Pain Presence: None/Denies Pain Type: N/A Datetime: 06/23/2019 20:35 Stage of : Antepartum Assessment Type: Ongoing Assessment Maternal Assessment Level of Consciousness: Keenly Alert, Responsive DTR's/Clonus: DTRs 2+; No Clonus Headache: Denies Blurred Vision: No Respiratory Effort: Unlabored; Regular Rhythm; Equal Expansion Breath Sounds, Left: Clear and Equal Breath Sounds, Right: Clear and Equal Nausea/Vomiting: Denies RUQ Epigastric Pain: Denies Lower Extremities Edema: Bilateral Lower Extremities Degree: 2+ Upper Extremities Edema: None Degree: None Facial Edema: None Temperature Route: Oral Fall Risk Assessment History of Falling: (0) No Secondary Diagnosis: (0) No Ambulatory Aid: (0) Bedrest/Nurse Assist IV Therapy: (0) No Gait: (0) Normal/Bedrest/Immobile Mental Status: (0) Oriented to Own Ability Fall Score: 0 Fall Risk Score Definition: No Risk: No action required Comments: Patient states she feels active movement. Pain Assessment Pain Scale: 0 Pain Presence: None/Denies Pain Type: N/A Datetime: 06/23/2019 20:33 Monitor Mode: External Resting Tone Vader: Relaxed Monitor Mode: External US Comments: Patient states she feels active movement. (Annotations: NST started. ) Datetime: 06/23/2019 14:28 Stage of : Antepartum Datetime: 06/23/2019 12:48 Stage of : Antepartum Datetime: 06/23/2019 09:00 Stage of : Antepartum Datetime: 06/23/2019 08:42 Monitor Mode: External Pattern: Normal: <= 5 Contractions in 10 Minutes Resting Tone Vader: Relaxed Heart Rate FHR Baseline Rate: 135 Monitor Mode: External US Variability: Moderate 6-25 bpm Accelerations: 10X10 Decelerations: None Category: Category I Pain Assessment Pain Scale: 0 Pain Presence: None/Denies Pain Type: N/A Pain Goal: 3 Datetime: 06/23/2019 08:12 Maternal Assessment Level of Consciousness: Keenly Alert, Responsive DTR's/Clonus: DTRs 1+ Headache: Denies Breath Sounds, Left: Clear and Equal Breath Sounds, Right: Clear and Equal Nausea/Vomiting: Denies RUQ Epigastric Pain: Denies Monitor Mode: External (Annotations: APPLIED FOR Q SHIFT NST) Monitor Mode: External US (Annotations: APPLIED FOR Q SHIFT NST) Pain Assessment Pain Scale: 0 Pain Presence: None/Denies Pain Type: N/A Pain Goal: 3 Datetime: 06/23/2019 08:05 Assessment Type: Ongoing Assessment Maternal Assessment Level of Consciousness: Keenly Alert, Responsive DTR's/Clonus: DTRs 2+; No Clonus Headache: Denies Blurred Vision: No Respiratory Effort: Unlabored; Regular Rhythm; Equal Expansion Breath Sounds, Left: Clear and Equal Breath Sounds, Right: Clear and Equal Nausea/Vomiting: Denies RUQ Epigastric Pain: Denies Facial Edema: None Fall Risk Assessment History of Falling: (0) No Secondary Diagnosis: (0) No Ambulatory Aid: (0) Bedrest/Nurse Assist IV Therapy: (0) No Gait: (0) Normal/Bedrest/Immobile Mental Status: (0) Oriented to Own Ability Fall Score: 0 Fall Risk Score Definition: No Risk: No action required Datetime: 06/23/2019 04:00 Stage of : Antepartum Temperature Route: Oral Datetime: 06/23/2019 00:58 Temperature Route: Oral Pain Assessment Pain Scale: 5 Pain Presence: Constant Pain Type: Burning; Ache Pain Location: Right Leg; Left Leg Pain Goal: 3 Pain Relief Measures: Comfort Measures Datetime: 06/22/2019 20:06 Labor Evaluation Frequency: NONE Monitor Mode: External Resting Tone Vader: Relaxed Contraction Comments: PT DENIES FEELING ANY UC'S Contraction Comments: TOCO REMOVED; NST COMPLETE Heart Rate FHR Baseline Rate: 155 Monitor Mode: External US Variability: Moderate 6-25 bpm Accelerations: 15X15 Decelerations: None Category: Category I Comments: US REMOVED; NST COMPLETE Datetime: 06/22/2019 19:40 Stage of : Antepartum Assessment Type: Ongoing Assessment Maternal Assessment Level of Consciousness: Keenly Alert, Responsive DTR's/Clonus: DTRs 2+; No Clonus Headache: Denies Blurred Vision: No Respiratory Effort: Unlabored; Regular Rhythm; Equal Expansion Breath Sounds, Left: Clear and Equal Breath Sounds, Right: Clear and Equal Nausea/Vomiting: Denies RUQ Epigastric Pain: Denies Lower Extremities Edema: Bilateral Lower Extremities Degree: 1+ Upper Extremities Edema: None Degree: None Facial Edema: None Temperature Route: Oral Fall Risk Assessment History of Falling: (0) No Secondary Diagnosis: (0) No Ambulatory Aid: (0) Bedrest/Nurse Assist IV Therapy: (0) No Gait: (0) Normal/Bedrest/Immobile Mental Status: (0) Oriented to Own Ability Fall Score: 0 Fall Risk Score Definition: No Risk: No action required Pain Assessment Pain Scale: 5 Pain Presence: Constant Pain Type: Burning; Ache Pain Location: Right Leg; Left Leg Pain Goal: 3 Pain Relief Measures: Comfort Measures Pain Assessment Comments: LEGS ELEVATED Datetime: 06/22/2019 19:26 Contraction Comments: TOCO APPLIED; NST STARTED Comments: US APPLIED; NST STARTED Datetime: 06/22/2019 18:15 Labor Evaluation Frequency: none Monitor Mode: External Resting Tone Vader: Relaxed Heart Rate FHR Baseline Rate: 155 Monitor Mode: External US FHR Baseline Changes: No Baseline Change Variability: Moderate 6-25 bpm Accelerations: 15X15 Decelerations: None Datetime: 06/22/2019 17:40 Assessment Type: Admission Assessment Vaginal Bleeding: None Maternal Assessment Level of Consciousness: Keenly Alert, Responsive DTR's/Clonus: DTRs 2+; No Clonus Headache: Denies Blurred Vision: No Respiratory Effort: Unlabored; Regular Rhythm; Equal Expansion Breath Sounds, Left: Clear and Equal Breath Sounds, Right: Clear and Equal Nausea/Vomiting: Denies RUQ Epigastric Pain: Denies Lower Extremities Edema: Bilateral Lower Extremities Degree: 1+ Upper Extremities Edema: None Degree: None Facial Edema: None Fall Risk Assessment History of Falling: (0) No Secondary Diagnosis: (0) No Ambulatory Aid: (0) Bedrest/Nurse Assist IV Therapy: (0) No Gait: (10) Weak Mental Status: (0) Oriented to Own Ability Fall Score: 10 Fall Risk Score Definition: No Risk: No action required Pain Assessment Pain Scale: 5 Pain Presence: Constant Pain Type: Burning Pain Location: Right Leg; Left Leg Datetime: 06/22/2019 17:18 Stage of : OB Triage Maternal Assessment Level of Consciousness: Keenly Alert, Responsive DTR's/Clonus: DTRs 1+ Headache: Denies Breath Sounds, Left: Clear and Equal Breath Sounds, Right: Clear and Equal Nausea/Vomiting: Denies RUQ Epigastric Pain: Denies Labor Evaluation Frequency: NONE Monitor Mode: External Resting Tone Vader: Relaxed Heart Rate FHR Baseline Rate: 150 Monitor Mode: External US Variability: Moderate 6-25 bpm Accelerations: 15X15 Decelerations: None Category: Category I Pain Assessment Pain Scale: 10 Pain Presence: Constant Pain Type: Sharp Pain Location: Right Leg; Left Leg Pain Goal: 3 Vaginal Exam Membrane Status: Intact Datetime: 06/22/2019 16:35 Stage of : OB Triage Maternal Assessment Level of Consciousness: Keenly Alert, Responsive DTR's/Clonus: DTRs 1+ Headache: Denies Breath Sounds, Left: Clear and Equal Breath Sounds, Right: Clear and Equal Nausea/Vomiting: Denies RUQ Epigastric Pain: Denies Labor Evaluation Frequency: NONE Monitor Mode: External Resting Tone Vader: Relaxed Heart Rate FHR Baseline Rate: 150 Monitor Mode: External US Variability: Moderate 6-25 bpm Accelerations: 15X15 Decelerations: None Category: Category I Pain Assessment Pain Scale: 10 Pain Presence: Constant Pain Type: Sharp Pain Location: Right Leg; Left Leg Pain Goal: 3 Vaginal Exam Membrane Status: Intact Datetime: 06/22/2019 16:27 Stage of : OB Triage Datetime: 06/22/2019 15:44 Stage of : OB Triage Datetime: 06/22/2019 15:40 Maternal Assessment Level of Consciousness: Keenly Alert, Responsive DTR's/Clonus: DTRs 1+ Headache: Denies Blurred Vision: No Respiratory Effort: Unlabored Breath Sounds, Left: Clear and Equal Breath Sounds, Right: Clear and Equal Nausea/Vomiting: Denies RUQ Epigastric Pain: Denies Facial Edema: None Labor Evaluation Frequency: NONE Monitor Mode: External Resting Tone Vader: Relaxed Heart Rate FHR Baseline Rate: 150 Monitor Mode: External US Variability: Moderate 6-25 bpm Accelerations: 15X15 Decelerations: None Category: Category I Pain Assessment Pain Scale: 10 Pain Presence: Constant Pain Type: Sharp Pain Location: Right Leg; Left Leg Pain Goal: 3 Vaginal Exam Membrane Status: Intact Datetime: 06/22/2019 15:33 Stage of : OB Triage Datetime: 06/22/2019 15:15 Time of Arrival: 06/22/2019 15:15 EGA: 31.0 Arrived By: Ambulatory Arrived From: Home Chief Complaint: PT CAME IN FROM HOME C/O BILATERAL LEG PAIN WITH SORES AND BRUCES AROUND SORES. PT STATES THAT SHE HAS BEEN DEALING WITH THIS PAIN FOR 1 WEEK. SORES ARE RED WITH PURPLE, NO BITES NOTE D AND THEY ARE WARM AT TOUCH. Movement: Present Contractions: Denies/Absent Rupture of Membranes: Denies Vaginal Discharge: Denies Recent Sexual Intercouse: Denies Abdominal Trauma: Not Applicable Additional Patient Complaints: NONE Time Provider Notified: 06/22/2019 15:33 Provider Notified: DELSHAD Initial Plan: MONITOR Datetime: 06/19/2019 14:11 EGA: 30.4 Datetime: 06/19/2019 13:59 Fall Score: 0 Fall Risk Score Definition: No Risk: No action required Datetime: 06/17/2019 07:54 Fall Score: 20 Fall Risk Score Definition: No Risk: No action required Datetime: 06/17/2019 02:26 Fall Score: 20 Fall Risk Score Definition: No Risk: No action required Datetime: 06/17/2019 02:25 EGA: 30.2 Datetime: 06/16/2019 19:24 Fall Score: 0 Fall Risk Score Definition: No Risk: No action required Datetime: 06/16/2019 19:23 EGA: 30.1
== END 2019-06-23 21:54 | disposition home or self-care (01) | DRG 831 ==
LOC: OBT 15:26 → L-D 15:28 → OBT 17:16 → L-D 17:16
PROVIDERS: ADMIT Obstetrics & Gynecology; ATTEND Obstetrics & Gynecology
DX: O26.613 Liver and biliary tract disorders in pregnancy, third trimester (principal); K83.1 Obstruction of bile duct; Z3A.31 31 weeks gestation of pregnancy
CPT/HCPCS: 76818; G0463

== ENCOUNTER 2019-06-30 10:55 | Outpatient (CLI) | payer MEDICAID ==
--- NOTE | 2019-06-30 15:52 | TRIAGE ---
OB Triage Datetime Report Generated by CPN: 06/30/2019 15:51 Datetime: 06/30/2019 12:00 Labor Evaluation Frequency: X3 Monitor Mode: External Duration (sec)2399: 40 Quality: Mild Pattern: Normal: <= 5 Contractions in 10 Minutes Resting Tone [place]: Relaxed Heart Rate FHR Baseline Rate: 135 Monitor Mode: External US FHR Baseline Changes: No Baseline Change Variability: Moderate 6-25 bpm Accelerations: 15X15 Decelerations: None Category: Category I Pain Assessment Pain Scale: 0 Pain Presence: None/Denies Pain Type: N/A Pain Goal: 0 Vaginal Exam Membrane Status: Intact Datetime: 06/30/2019 11:18 Time of Arrival: 06/30/2019 10:44 EGA: 32.1 Arrived By: Ambulatory Arrived From: Home Chief Complaint: sent in from clinic for elevated LFTs Movement: Present Contractions: Denies/Absent Rupture of Membranes: Denies Vaginal Bleeding: None Vaginal Discharge: Denies Recent Sexual Intercouse: Denies Abdominal Trauma: Not Applicable Patient Complaints: None Time Provider Notified: 06/30/2019 11:09 Provider Notified: Delshad Initial Plan: NST, BPP, CMP, CBC, UA Datetime: 06/30/2019 11:15 Assessment Type: Triage Maternal Assessment Level of Consciousness: Keenly Alert, Responsive DTR's/Clonus: DTRs 2+; No Clonus Headache: Denies Blurred Vision: No Respiratory Effort: Unlabored; Regular Rhythm; Equal Expansion Breath Sounds, Left: Clear and Equal Breath Sounds, Right: Clear and Equal Nausea/Vomiting: Denies RUQ Epigastric Pain: Denies Lower Extremities Edema: Bilateral Lower Extremities Degree: Trace Upper Extremities Edema: None Degree: None Facial Edema: None Fall Risk Assessment History of Falling: (0) No Secondary Diagnosis: (0) No Ambulatory Aid: (0) Bedrest/Nurse Assist IV Therapy: (0) No Gait: (0) Normal/Bedrest/Immobile Mental Status: (0) Oriented to Own Ability Fall Score: 0 Fall Risk Score Definition: No Risk: No action required Datetime: 06/30/2019 11:02 Temperature Route: Oral Datetime: 06/30/2019 10:55 Stage of : OB Triage Datetime: 06/23/2019 20:35 Fall Score: 0 Fall Risk Score Definition: No Risk: No action required Datetime: 06/23/2019 08:05 Fall Score: 0 Fall Risk Score Definition: No Risk: No action required Datetime: 06/22/2019 19:40 Fall Score: 0 Fall Risk Score Definition: No Risk: No action required Datetime: 06/22/2019 17:40 Fall Score: 10 Fall Risk Score Definition: No Risk: No action required Datetime: 06/22/2019 15:15 EGA: 31.0 Datetime: 06/19/2019 14:11 EGA: 30.4 Datetime: 06/19/2019 13:59 Fall Score: 0 Fall Risk Score Definition: No Risk: No action required Datetime: 06/17/2019 07:54 Fall Score: 20 Fall Risk Score Definition: No Risk: No action required Datetime: 06/17/2019 02:26 Fall Score: 20 Fall Risk Score Definition: No Risk: No action required Datetime: 06/17/2019 02:25 EGA: 30.2 Datetime: 06/16/2019 19:24 Fall Score: 0 Fall Risk Score Definition: No Risk: No action required Datetime: 06/16/2019 19:23 EGA: 30.1
--- NOTE | 2019-06-30 20:50 | PN ---
Triage Information Date/Time Reason for visit: generalized itching Weeks of Gestation 32 weeks /Para Diabetes: none Hypertention: none Objective Heart Rate: 120's Heart Rate Comments Reactive Results/Medications Result Diagram: 06/30/19 1140 06/30/19 1140 Results 24 hrs Laboratory Tests Test 06/30/19 11:40 White Blood Count 8.9 Red Blood Count 3.60 L Hemoglobin 10.7 L Hematocrit 32.7 L Mean Corpuscular Volume 90.8 Mean Corpuscular Hemoglobin 29.7 Mean Corpuscular Hemoglobin Concent 32.7 Red Cell Distribution Width 12.3 Platelet Count 419 #H Mean Platelet Volume 9.4 Immature Granulocytes % 0.500 H Neutrophils % 79.4 H Lymphocytes % 13.8 L Monocytes % 5.6 Eosinophils % 0.6 Basophils % 0.1 Nucleated Red Blood Cells % 0.0 Immature Granulocytes # 0.040 H Neutrophils # 7.0 Lymphocytes # 1.2 Monocytes # 0.5 Eosinophils # 0.1 Basophils # 0.0 Nucleated Red Blood Cells # 0.0 Urine Color ROBERT Urine Clarity SLIGHTLY CLOUDY A Urine pH 6.0 Urine Specific [place] 1.027 Urine Ketones NEGATIVE Urine Nitrite NEGATIVE Urine Bilirubin NEGATIVE Urine Urobilinogen 1+ H Urine Leukocyte Esterase 1+ H Urine Microscopic RBC 3 Urine Microscopic WBC 8 H Urine Squamous Epithelial Cells MANY A Urine Bacteria FEW A Urine Mucus FEW A Urine Hemoglobin NEGATIVE Urine Glucose NEGATIVE Urine Total Protein 1+ H Sodium Level 137 Potassium Level 4.1 Chloride Level 102 Carbon Dioxide Level 28 Anion Gap 7 Blood Urea Nitrogen 9 Creatinine 0.57 Est Glomerular Filtrat Rate mL/min > 60 Glucose Level 83 Calcium Level 9.3 Total Bilirubin 0.3 Direct Bilirubin 0.00 Indirect Bilirubin 0.3 Aspartate Amino Transf (AST/SGOT) 376 H Alanine Aminotransferase (ALT/SGPT) 643 H Alkaline Phosphatase 227 H Total Protein 7.3 Albumin 3.3 Globulin 4.00 H Albumin/Globulin Ratio 0.82 Imaging Results [facility] [place] 06/25 Disposition: Discharge Assessment/Plan Follow up in office 07/01/2019 Antepartum testing on 07/03/2019. BO HEATH MD Jun 30, 2019 20:50
== END 2019-06-30 15:37 | disposition home or self-care (01) ==
LOC: OBT 10:55 → L-D 10:55 → OBT 15:37
PROVIDERS: ATTEND Obstetrics & Gynecology
DX: O26.893 Other specified pregnancy related conditions, third trimester (principal); Z3A.32 32 weeks gestation of pregnancy; L29.9 Pruritus, unspecified
CPT/HCPCS: 36415; 76818; 80053; 81001; 85025; Z7500; G0463